=== PATIENT | female | born 2000 ===

== ENCOUNTER 2023-09-16 16:36 | Emergency (ER) | payer SELFPAY ==
[2023-09-16] MEDS ORDERED: Metoclopramide 10 MG Tab PO ONE (16:37)
[2023-09-16] MEDS ORDERED: Take Home: Amoxicillin 500 MG, 6 Cap Pack PO ONE (16:56)
[2023-09-16] MEDS ORDERED: Acetaminophen 500 MG Tab PO ONE (16:59)
[2023-09-16] MEDS ORDERED: Amoxicillin 250 MG/5 ML Susp 150 ML Bottle PO ONE (17:06)
[2023-09-16] MEDS ORDERED: Amoxicillin 500 MG Cap PO ONE (17:11)
[2023-09-16] MEDS ORDERED: Metoclopramide 10 MG Tab ONE (17:19)
== END 2023-09-16 17:23 | disposition home or self-care (01) ==
LOC: DL.ED 16:36
DX: J06.9 Acute upper respiratory infection, unspecified (principal); H66.002 Acute suppurative otitis media without spontaneous rupture of ear drum, left ear
CPT/HCPCS: 99283; A9270